=== PATIENT | male | born 1945 | race Caucasian/White ===

== ENCOUNTER 2025-11-05 10:56 | Emergency (ER) | payer OTHER, MEDICARE, SELFPAY ==
--- NOTE | 2025-11-05 11:03 | ED.ABDPAIN ---
HPI - Abdominal Pain <Olga Pratt PA-C - Last Filed: 11/05/25 16:19> General Chief Complaint: Urogenital-Male Stated Complaint: Poss RT kidney stone; px in RT side back Time Seen by Provider: 11/05/25 11:03 History of Present Illness HPI narrative: Mr. Watson is a very pleasant 80-year-old male with a past medical history of CAD s/p 2 stents, HTN, CKD 3, cholecystectomy who presents to the emergency via private vehicle from home for concern of acute right low flank pain that started this morning. Patient is concerned for possible kidney stone, he does not have history of kidney stone. Reports when he woke up this morning he noticed a sharp stabbing pain in his right low back above the hip. No trauma. He is not having any dysuria or hematuria but he does report more frequency of urination. He denies chest pain, shortness of breath, fevers, chills, nausea, vomiting, diarrhea, constipation, dysuria, hematuria, frontal abdominal pain. He takes Plavix but does not take any other blood thinners. Related Data Home Medications ?Medication ?Instructions ?Recorded ?Confirmed amlodipine 5 mg tablet 5 mg PO DAILY 11/05/25 11/05/25 valsartan 160 mg tablet 160 mg PO DAILY 11/05/25 11/05/25 Previous Rx's ?Medication ?Instructions ?Recorded cefpodoxime 200 mg tablet 200 mg PO BID 14 days #28 tabs 11/05/25 Allergies Allergy/AdvReac Type Severity Reaction Status Date / Time No Known Drug Allergies Allergy Verified 11/05/25 11:05 Review of Systems <Olga Pratt PA-C - Last Filed: 11/05/25 16:19> Review of Systems ROS Unobtainable: All systems reviewed & are unremarkable except as noted in HPI and below Patient History <Olga Pratt PA-C - Last Filed: 11/05/25 16:19> Social History Smoking Status: Unknown if ever smoked Exam <Olga Pratt PA-C - Last Filed: 11/05/25 16:19> Narrative Exam Narrative: GENERAL: 80 year old patient appears stated age. Well-developed patient, in no acute distress. HEAD: Atraumatic. Normocephalic. EYES: No scleral icterus. No injection or drainage. NECK: Trachea midline. Cervical ROM intact. CARDIOVASCULAR: Regular rate and rhythm. RESPIRATORY: ?Nonlabored respirations. ?Speaking in clear, full sentences. ?Clear to auscultation. Breath sounds equal bilaterally. No wheezes, rales, or rhonchi. ? GASTROINTESTINAL: Abdomen soft, non-tender, nondistended. BS present. BACK: TTP R low back, just below CVA region. NEURO: AOx3. ?Clear speech. ?Moves all 4 extremities appropriately. SKIN: No rash or erythema of visible areas Initial Vital Signs Initial Vital Signs: Vital Signs Temperature 97.0 F L 11/05/25 11:05 Pulse Rate 84 11/05/25 11:05 Respiratory Rate 15 11/05/25 11:05 Blood Pressure 205/95 H 11/05/25 11:05 Pulse Oximetry 97 11/05/25 11:05 Oxygen Delivery Method Room Air 11/05/25 11:05 <Stephanie Martins MD - Last Filed: 11/07/25 01:04> Initial Vital Signs Initial Vital Signs: Vital Signs Temperature 97.0 F L 11/05/25 11:05 Pulse Rate 84 11/05/25 11:05 Respiratory Rate 15 11/05/25 11:05 Blood Pressure 205/95 H 11/05/25 11:05 Pulse Oximetry 97 11/05/25 11:05 Oxygen Delivery Method Room Air 11/05/25 11:05 Course <Olga Pratt PA-C - Last Filed: 11/05/25 16:19> Orders Ordered: Discontinued Medications Amlodipine Besylate (Amlodipine 5 Mg Tablet) 5 mg PO NOW ONE Stop: 11/05/25 14:54 Last Admin: 11/05/25 15:02 Dose: 5 mg Documented By: BRYCE Sodium Chloride (Normal Saline 0.9%) 1,000 mls @ 1,000 mls/hr IV BOLUS ONE Stop: 11/05/25 12:10 Last Infusion: 11/05/25 12:50 Dose: Infused Documented By: Admin: 11/05/25 11:30 Dose: 1,000 mls/hr Documented By: BRYCE Ceftriaxone Sodium 1,000 mg/ (Sodium Chloride) 100 mls @ 200 mls/hr IV NOW ONE Stop: 11/05/25 14:52 Last Infusion: 11/05/25 15:53 Dose: Infused Documented By: Admin: 11/05/25 15:03 Dose: 200 mls/hr Documented By: RLC Morphine Sulfate (Morphine 4 Mg/Ml Inj) 4 mg IV NOW ONE Stop: 11/05/25 11:12 Last Admin: 11/05/25 11:30 Dose: 4 mg Documented By: RLC Ondansetron HCl (Ondansetron 4 Mg/2 Ml Inj) 4 mg IV NOW ONE Stop: 11/05/25 11:12 Last Admin: 11/05/25 11:30 Dose: 4 mg Documented By: RLC Valsartan (Valsartan 80 Mg Tablet) 160 mg PO NOW ONE Stop: 11/05/25 14:54 Last Admin: 11/05/25 15:03 Dose: 160 mg Documented By: RLC Vital Signs Vital signs: Vital Signs - 8 hr 11/05/25 11:05 11/05/25 12:14 11/05/25 14:47 Temperature 97.0 F L Pulse Rate 84 50 L 72 Respiratory Rate 15 18 16 Blood Pressure 205/95 H 190/82 H 194/87 H Pulse Oximetry 97 99 98 Oxygen Delivery Method Room Air Room Air Room Air <Stephanie Martins MD - Last Filed: 11/07/25 01:04> Orders Ordered: Discontinued Medications Amlodipine Besylate (Amlodipine 5 Mg Tablet) 5 mg PO NOW ONE Stop: 11/05/25 14:54 Last Admin: 11/05/25 15:02 Dose: 5 mg Documented By: BRYCE Sodium Chloride (Normal Saline 0.9%) 1,000 mls @ 1,000 mls/hr IV BOLUS ONE Stop: 11/05/25 12:10 Last Infusion: 11/05/25 12:50 Dose: Infused Documented By: Admin: 11/05/25 11:30 Dose: 1,000 mls/hr Documented By: RLPepe Ceftriaxone Sodium 1,000 mg/ (Sodium Chloride) 100 mls @ 200 mls/hr IV NOW ONE Stop: 11/05/25 14:52 Last Infusion: 11/05/25 15:53 Dose: Infused Documented By: RLPepe Admin: 11/05/25 15:03 Dose: 200 mls/hr Documented By: RLPepe Morphine Sulfate (Morphine 4 Mg/Ml Inj) 4 mg IV NOW ONE Stop: 11/05/25 11:12 Last Admin: 11/05/25 11:30 Dose: 4 mg Documented By: RLC Ondansetron HCl (Ondansetron 4 Mg/2 Ml Inj) 4 mg IV NOW ONE Stop: 11/05/25 11:12 Last Admin: 11/05/25 11:30 Dose: 4 mg Documented By: RLC Valsartan (Valsartan 80 Mg Tablet) 160 mg PO NOW ONE Stop: 11/05/25 14:54 Last Admin: 11/05/25 15:03 Dose: 160 mg Documented By: BRYCE Vital Signs Vital signs: Vital Signs - 8 hr 11/05/25 11:05 11/05/25 12:14 11/05/25 14:47 Temperature 97.0 F L Pulse Rate 84 50 L 72 Respiratory Rate 15 18 16 Blood Pressure 205/95 H 190/82 H 194/87 H Pulse Oximetry 97 99 98 Oxygen Delivery Method Room Air Room Air Room Air MDM - Abdominal Pain <Olga Pratt PA-C - Last Filed: 11/05/25 16:19> Medical Records Medical records narrative: None available Lab Data 11/05/25 11:20 11/05/25 11:20 Labs: Lab Results 11/05/25 11/05/25 Range/Units 11:20 11:30 WBC 8.7 (4.5-11.0) X10^3/uL RBC 5.25 (4.5-5.9) X10^6/uL Hgb 15.3 (13.5-17.5) g/dL Hct 45.9 (41-53) % MCV 87.3 (80-100) fL MCH 29.1 (26-34) PG MCHC 33.3 (30-36) % RDW 14.4 (11.6-14.8) % Plt Count 438 H (150-400) X10^3/uL Neut % (Auto) 77.7 H (50-75) % Lymph % (Auto) 15.0 L (25-40) % [place] % (Auto) 5.9 (3-14) % Eos % (Auto) 1.0 L (2-4) % Baso % (Auto) 0.4 (0-2) % Neut # (Auto) 6700 (2590-0330) /uL Lymph # (Auto) 1300 (4882-6585) /uL [place] # (Auto) 500 (0-900) /uL Eos # (Auto) 100 (0-450) /uL Baso # (Auto) 0 (0-100) /uL Sodium 141 (137-145) mmol/L Potassium 4.7 (3.4-5.1) mmol/L Chloride 106 (98-107) mmol/L Carbon Dioxide 23 (22-32) mmol/L BUN 25 H (9-20) mg/dL Creatinine 1.91 H (0.66-1.25) mg/dL Estimated GFR 35 L (>60) mL/min BUN/Creatinine Ratio 13.1 (6-22) Glucose 121 H (70-99) mg/dL Calcium 9.8 (8.4-10.2) mg/dL Magnesium 2.0 (1.6-2.3) mg/dL Total Bilirubin 0.7 (0.2-1.3) mg/dL AST 32 (17-59) IU/L ALT 34 (<50) IU/L Alkaline Phosphatase 138 H (38-126) U/L Total Protein 8.7 H (6.3-8.2) g/dL Albumin 4.5 (3.5-5.0) g/dL Globulin 4.2 H (1.7-4.1) g/dL Albumin/Globulin Ratio 1.1 (1.0-2.8) Lipase 77 (23-300) U/L Urine RBC 0-1/hpf (0-5/HPF) Urine WBC 1-5/hpf (0-5/HPF) Ur Squamous Epith Cells 0-1 /hpf (0-5/HPF) Urine Bacteria Many (>30) H (None) Granular Casts 0-1/lpf (None) Urine Mucus 2+ H (Negative) Ur Culture Indicated? Cult not indicated Vol Urine Centrifuged 10ml (spun) Point of care testing: Urine Dip Bedside Urine Glucose Negative Bedside Urine Bilirubin - Negative Bedside Urine Ketone - Negative Urine Specific Hurst 1.030 Bedside Urine Occult Blood - Negative Bedside Urine pH 5.5 Bedside Urine Protein ++ 100 Bedside Urine Urobilinogen - Negative Bedside Urine Nitrite - Negative Bedside Urine Leukocytes +/- [address] scan - abdomen/pelvis: Radiologist's Impression: PROCEDURE: CT ABDOMEN PELVIS WO CON INDICATIONS: acute right low flank pain; concern stone; CKD TECHNIQUE: Axial sections were acquired from the lung bases to the pubic symphysis. Coronal and sagittal reformats were performed. For radiation dose reduction, the following was used: automated exposure control, adjustment of mA and/or kV according to patient size. COMPARISON: None. FINDINGS: Image quality: Diagnostic. Lower Chest: Small hiatal hernia. Bilateral lung bases are clear. Heart size is mildly enlarged, no pericardial effusion. URINARY: Right Kidney: No stones or hydronephrosis. Nonspecific mild right perinephric fat stranding. Right Ureter: No hydroureter. Left Kidney: No stones or hydronephrosis. Nonspecific mild left perinephric fat stranding. Left Ureter: No hydroureter. Bladder: Normal wall thickness. No stones. ABDOMEN: Liver: No contour-deforming solid mass. Gallbladder: Gallbladder is surgically absent. Biliary ducts: No biliary dilation. Pancreas: No ductal dilation. Spleen: Size is within normal limits. Adrenal Glands: No adrenal nodules. Stomach and Bowel: Normal colonic caliber, without significant wall thickening. Sigmoid diverticulosis without CT evidence of acute diverticulitis. No abscess collection. Appendix is not visualized. No focal inflammatory changes are seen in right lower quadrant abdomen. Peritoneum: No abnormal intraperitoneal fluid. No free air. Ventral Wall: No hernia. Abdominal Nodes: No enlarged retroperitoneal or mesenteric lymph nodes. Vessels: Aorta and inferior vena cava are normal in size. PELVIS: Pelvic Organs: Enlarged prostate gland. Pelvic Nodes: Unremarkable. Miscellaneous: No inguinal hernias are seen. Bones: No aggressive appearing bony lesions. Degenerative disc disease throughout lumbar spine is seen. IMPRESSION: 1. No obstructing stones or hydronephrosis. Nonspecific mild bilateral perinephric fat stranding, low-grade pyelonephritis cannot be entirely excluded suggest clinical correlation. Normal appearing urinary bladder. 2. Enlarged prostate gland. 3. No bowel obstruction or abnormal bowel wall thickening. No free fluid or free air. Sigmoid diverticulosis without CT evidence of acute diverticulitis. No secondary CT signs of acute appendicitis. Dictated by: Ashkan Carmona M.D. on 11/05/2025 at 12:12 Approved by: Ashkan Carmona M.D. on 11/05/2025 at 12:15 [facility] Narrative Medical decision making narrative: 80-year-old male with a past medical history of CAD s/p 2 stents, HTN, CKD 3, cholecystectomy who presents to the emergency via private vehicle from home for concern of acute right low flank pain that started this morning. Differential diagnosis includes but is not limited to nephrolithiasis, ureterolithiasis, pyelonephritis, UTI, appendicitis musculoskeletal pain, etc. On exam the patient is in no acute distress, nontoxic appearing however he is having about 6/10 right low flank pain and his blood pressure is elevated in triage. He is afebrile and not tachycardic. Pain came on suddenly and was not precipitated by trauma. We will obtain CT abdomen pelvis without IV contrast given concern for stone in addition patient has history of CKD. We will treat pain with morphine until I can see what his GFR is. We will treat with fluids, Zofran obtain CBC, CMP, lipase, magnesium, urinalysis. Labs reveal normal WBC count 8.7, hemoglobin 15.3 hematocrit 45.9. Platelets are slightly elevated 438. Normal sodium 141, potassium 4.7. Patient's BUN is elevated 25 creatinine elevated 1.91 with a GFR of 35, he does report a history of CKD 3. Glucose 121. Very slight elevation of alkaline phosphatase 138, normal AST ALT. Normal lipase 77. Urinalysis reveals many bacteria, 1-5 WBCs. Urine culture pending. 1345: Re-evaluated the patient. He is feeling much better and his pain is essentially gone. Informed him of his lab work and urinalysis results. States that is normal GFR is about 38 and today he is 35. Awaiting CT at this time. CT reveals no obstructing stones or hydronephrosis, there is nonspecific mild bilateral perinephric fat stranding low-grade pyelonephritis can not be excluded. Normal-appearing bladder. Enlarged prostate gland. No bowel obstruction. Printed reviewed imaging results with the patient. Ceftriaxone ordered. Home blood pressure medications ordered as well because he missed them this morning. Patient is feeling much better, discussed diagnosis of pyelonephritis, we will prescribe cefpodoxime 200 mg b.i.d. times 14 days. Encourage patient to follow up with his PCP and urology for further management. All questions answered. ER return precautions discussed. He is stable for discharge home. <Stephanie Martins MD - Last Filed: 11/07/25 01:04> Lab Data Labs: Lab Results 11/05/25 11/05/25 Range/Units 11:20 11:30 WBC 8.7 (4.5-11.0) X10^3/uL RBC 5.25 (4.5-5.9) X10^6/uL Hgb 15.3 (13.5-17.5) g/dL Hct 45.9 (41-53) % MCV 87.3 (80-100) fL MCH 29.1 (26-34) PG MCHC 33.3 (30-36) % RDW 14.4 (11.6-14.8) % Plt Count 438 H (150-400) X10^3/uL Neut % (Auto) 77.7 H (50-75) % Lymph % (Auto) 15.0 L (25-40) % [place] % (Auto) 5.9 (3-14) % Eos % (Auto) 1.0 L (2-4) % Baso % (Auto) 0.4 (0-2) % Neut # (Auto) 6700 (8183-9606) /uL Lymph # (Auto) 1300 (0559-6416) /uL [place] # (Auto) 500 (0-900) /uL Eos # (Auto) 100 (0-450) /uL Baso # (Auto) 0 (0-100) /uL Sodium 141 (137-145) mmol/L Potassium 4.7 (3.4-5.1) mmol/L Chloride 106 (98-107) mmol/L Carbon Dioxide 23 (22-32) mmol/L BUN 25 H (9-20) mg/dL Creatinine 1.91 H (0.66-1.25) mg/dL Estimated GFR 35 L (>60) mL/min BUN/Creatinine Ratio 13.1 (6-22) Glucose 121 H (70-99) mg/dL Calcium 9.8 (8.4-10.2) mg/dL Magnesium 2.0 (1.6-2.3) mg/dL Total Bilirubin 0.7 (0.2-1.3) mg/dL AST 32 (17-59) IU/L ALT 34 (<50) IU/L Alkaline Phosphatase 138 H (38-126) U/L Total Protein 8.7 H (6.3-8.2) g/dL Albumin 4.5 (3.5-5.0) g/dL Globulin 4.2 H (1.7-4.1) g/dL Albumin/Globulin Ratio 1.1 (1.0-2.8) Lipase 77 (23-300) U/L Urine RBC 0-1/hpf (0-5/HPF) Urine WBC 1-5/hpf (0-5/HPF) Ur Squamous Epith Cells 0-1 /hpf (0-5/HPF) Urine Bacteria Many (>30) H (None) Granular Casts 0-1/lpf (None) Urine Mucus 2+ H (Negative) Ur Culture Indicated? Cult not indicated Vol Urine Centrifuged 10ml (spun) Point of care testing: Urine Dip Bedside Urine Glucose Negative Bedside Urine Bilirubin - Negative Bedside Urine Ketone - Negative Urine Specific [place] 1.030 Bedside Urine Occult Blood - Negative Bedside Urine pH 5.5 Bedside Urine Protein ++ 100 Bedside Urine Urobilinogen - Negative Bedside Urine Nitrite - Negative Bedside Urine Leukocytes +/- 15 Esterase Discharge Plan Departure Patient Disposition: Home Clinical Impression: Acute pyelonephritis, Enlarged prostate CKD (chronic kidney disease) Qualifiers: Chronic kidney disease stage: stage 3 (moderate) Chronic kidney disease stage 3 subtype: stage 3b (GFR 30-44) Qualified Code(s): N18.32 - Chronic kidney disease, stage 3b Instructions: DI for Kidney Infection Activity Restrictions/Additional Instructions: Dear Mr. Watson, Thank you for coming to the emergency department. Today you were evaluated for right-sided low back pain. Your blood work, urine test, and CT scan revealed a kidney infection. You have been treated with IV antibiotics. I have sent a course of oral antibiotics to your pharmacy, [facility] in [place]. It is very important to complete the full course of antibiotics. Please use Tylenol as needed for pain and increase hydration. Please follow up with the primary care doctor and please also follow up with Urology in regards to your enlarged prostate. Please return to the ER immediately if you develop severe pain, fevers, persistent vomiting or any other concerns. Please follow up with your primary care doctor within the next 2-3 days for ER follow-up. (If you do not have a PCP you can call [phone]. ?to schedule an appointment with an [facility] Primary Care Provider) IF YOU DEVELOP ANY NEW OR WORSENING SYMPTOMS, RETURN TO THE ER! Please read the attached instructions, they highlight more specific treatments and interventions for you at home. Thank you for letting me participate in your care, Olga Pratt PA-C Prescriptions: New cefpodoxime 200 mg tablet 200 mg PO BID 14 Days Qty: 28 0RF Rx Instructions: must administer with a meal/food No Action amlodipine 5 mg tablet 5 mg PO DAILY valsartan 160 mg tablet 160 mg PO DAILY Referrals: Moses Dixon DO [Physician, Urology] Referral Note: Enlarged Prostate Cedric Funes MD [Primary Care Provider, Internal Medicine] Stand Alone Forms: Patient Portal/API ED Sign-out <Stephanie Martins MD - Last Filed: 11/07/25 01:04> Cosign ED Attending Estuardo Attestation: I reviewed the documentation entered by the physician library clerical assistant. I was not directly involved in this patient?s care, but I reviewed the documented history, examination findings, assessment, and plan with the PA. I agree with the evaluation and plan as documented. Stephanie Martins MD Emergency Medicine Attending
[2025-11-05 11:05] VITALS: BP 205/95; PULSE 84; RESP 15; TEMP 36.1; O2SAT 97; BMI 32.5
--- NOTE | 2025-11-05 11:11 | DI.CT.S_ITS ---
PROCEDURE: CT ABDOMEN PELVIS WO CON INDICATIONS: acute right low flank pain; concern stone; CKD TECHNIQUE: Axial sections were acquired from the lung bases to the pubic symphysis. Coronal and sagittal reformats were performed. For radiation dose reduction, the following was used: automated exposure control, adjustment of mA and/or kV according to patient size. COMPARISON: None. FINDINGS: Image quality: Diagnostic. Lower Chest: Small hiatal hernia. Bilateral lung bases are clear. Heart size is mildly enlarged, no pericardial effusion. URINARY: Right Kidney: No stones or hydronephrosis. Nonspecific mild right perinephric fat stranding. Right Ureter: No hydroureter. Left Kidney: No stones or hydronephrosis. Nonspecific mild left perinephric fat stranding. Left Ureter: No hydroureter. Bladder: Normal wall thickness. No stones. ABDOMEN: Liver: No contour-deforming solid mass. Gallbladder: Gallbladder is surgically absent. Biliary ducts: No biliary dilation. Pancreas: No ductal dilation. Spleen: Size is within normal limits. Adrenal Glands: No adrenal nodules. Stomach and Bowel: Normal colonic caliber, without significant wall thickening. Sigmoid diverticulosis without CT evidence of acute diverticulitis. No abscess collection. Appendix is not visualized. No focal inflammatory changes are seen in right lower quadrant abdomen. Peritoneum: No abnormal intraperitoneal fluid. No free air. Ventral Wall: No hernia. Abdominal Nodes: No enlarged retroperitoneal or mesenteric lymph nodes. Vessels: Aorta and inferior vena cava are normal in size. PELVIS: Pelvic Organs: Enlarged prostate gland. Pelvic Nodes: Unremarkable. Miscellaneous: No inguinal hernias are seen. Bones: No aggressive appearing bony lesions. Degenerative disc disease throughout lumbar spine is seen. IMPRESSION: 1. No obstructing stones or hydronephrosis. Nonspecific mild bilateral perinephric fat stranding, low-grade pyelonephritis cannot be entirely excluded suggest clinical correlation. Normal appearing urinary bladder. 2. Enlarged prostate gland. 3. No bowel obstruction or abnormal bowel wall thickening. No free fluid or free air. Sigmoid diverticulosis without CT evidence of acute diverticulitis. No secondary CT signs of acute appendicitis. Dictated by: Ashkan Carmona M.D. on 11/05/2025 at 12:12 Approved by: Ashkan Carmona M.D. on 11/05/2025 at 12:15
[2025-11-05] MEDS: SODIUM CHLORIDE 0.9% 1,000 ML 1000 ML IV (11:30)
[2025-11-05] MEDS: ONDANSETRON 4 MG/2 ML INJ IV (11:30)
[2025-11-05] MEDS: MORPHINE 4 MG/ML INJ IV (11:30)
[2025-11-05 11:31] LABS: Add Manual Diff / Slide Review NO; Hematocrit 45.9 % (41-53); Hemoglobin 15.3 g/dL (13.5-17.5); Lymphocytes Absolute Auto 1300 /uL (1100-4500); Mean Corpuscular HGB Conc 33.3 % (30-36); Mean Corpuscular Hemoglobin 29.1 PG (26-34); Mean Corpuscular Volume 87.3 fL (80-100); Platelet Count 438 X10^3/uL (150-400)
[2025-11-05 11:44] LABS: Alanine Aminotransferase 34 IU/L (<50); Albumin 4.5 g/dL (3.5-5.0); Albumin Globulin Ratio 1.1 (1.0-2.8); Alkaline Phosphatase 138 U/L (38-126); Blood Urea Nitrogen 25 mg/dL (9-20); Calcium 9.8 mg/dL (8.4-10.2); Carbon Dioxide 23 mmol/L (22-32); Chloride 106 mmol/L (98-107); Estimated Glomerular Filt Rate 35 mL/min (>60); Globulin 4.2 g/dL (1.7-4.1); Glucose 121 mg/dL (70-99); HEMOLYSIS 18 (0-50); Lipase 77 U/L (23-300); Magnesium 2.0 mg/dL (1.6-2.3); Potassium 4.7 mmol/L (3.4-5.1); Sodium 141 mmol/L (137-145); Total Protein 8.7 g/dL (6.3-8.2)
[2025-11-05 12:14] VITALS: BP 190/82; PULSE 50; RESP 18; O2SAT 99
[2025-11-05 13:11] LABS: Culture Indicated Urine Cult Not Indicated
[2025-11-05 14:47] VITALS: BP 194/87; PULSE 72; RESP 16; O2SAT 98
[2025-11-05] MEDS: VALSARTAN 80 MG TABLET 160 MG PO (15:03)
== END 2025-11-05 15:55 | disposition home or self-care (01) ==
PROVIDERS: Emergency Provider Physician Assistant; PCP Internal Medicine
DX: N10 Acute pyelonephritis (principal); N40.0 Benign prostatic hyperplasia without lower urinary tract symptoms; N18.32 Chronic kidney disease, stage 3b; I12.9 Hypertensive chronic kidney disease with stage 1 through stage 4 chronic kidney disease, or unspecified chronic kidney disease; I25.10 Atherosclerotic heart disease of native coronary artery without angina pectoris; Z95.5 Presence of coronary angioplasty implant and graft
CPT/HCPCS: 36415; 74176; 80053; 81003; 81015; 83690; 83735; 85025; 87086; 96365; 96375; 99284; J0696; J2272; J2405; J7030; J7050